=== PATIENT | male | born 1995 | race Caucasian/White ===

== ENCOUNTER → 2020-01-14 | Outpatient (REF) ==
--- NOTE | 2020-01-14 15:31 | Diagnostic Imaging Report ---
INDICATION: Rolled ankle stepping off trailer. TECHNIQUE: Three views of the left ankle CORRELATION STUDY: None FINDINGS: The bony alignment is anatomic. The talar dome is intact. The ankle mortise is maintained. There is no acute fracture or dislocation. Rather prominent soft tissue swelling is noted particularly over the lateral aspect the ankle. IMPRESSION: Negative for acute bony abnormality of the ankle. Rather significant soft tissue swelling is present. Dictated by: Dictated on workstation # [id number]
--- NOTE | 2020-01-14 15:48 | Diagnostic Imaging Report ---
INDICATION: Injury to the left foot and ankle. TIME OF EXAM: 3:29 PM. FINDINGS: Three views of the left foot were obtained. The metatarsals are intact. The phalanges are intact. The midfoot and hindfoot are unremarkable. No fractures are seen. IMPRESSION: No acute bony abnormality is detected. Dictated by: Dictated on workstation # [id number]
== END ==
LOC: OCC 14:52
PROVIDERS: ATTEND Nurse Practitioner Family
DX: S99.912A Unspecified injury of left ankle, initial encounter (principal); S99.922A Unspecified injury of left foot, initial encounter; X50.9XXA Other and unspecified overexertion or strenuous movements or postures, initial encounter
CPT/HCPCS: 73610; 73630